=== PATIENT | female | born 2000 | race Caucasian/White ===

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

== ENCOUNTER → 2022-03-20 | Outpatient (CLI) | payer MEDICAID, SELFPAY ==
[2022-03-22 20:09] LABS: QNTFERON TB Mitogen Value > 10.00 IU/mL (.); QNTFERON TB Nil Value 0.01 IU/mL (.); QNTFERON TB1+ Ag Value 0.02 IU/mL (.); QNTFERON TB2+ Ag Value 0.03 IU/mL (.)
[2022-03-23 15:47] LABS: Hepatitis B Core Ab Total Negative (Negative); QNTIFERON TB Positive Criteria Negative (Negative)
== END | disposition home or self-care (01) ==
PROVIDERS: PCP Nurse Practitioner Family; Referring Provider Physician Assistant Medical; Visit Provider Physician Assistant Medical
DX: L40.4 Guttate psoriasis (principal); Z79.899 Other long term (current) drug therapy
CPT/HCPCS: 36415; 86480; 86704

== ENCOUNTER 2022-09-19 11:43 | Emergency (ER) | payer MEDICAID, SELFPAY ==
[2022-09-19 11:44] VITALS: BP 137/103; PULSE 89; RESP 16; TEMP 36.7; O2SAT 99; BMI 24.6
--- NOTE | 2022-09-19 12:05 | ED.RN ---
PT REPORTS THAT SHE DOES NOT WANT TO FILE [employer].
[2022-09-19 12:55] VITALS: BP 130/86; PULSE 89; RESP 16; O2SAT 97
--- NOTE | 2022-09-19 14:48 | EX.ED.DYSGE1 ---
HPI History of Present Illness Chief Complaint: Wound Check Informant: patient Narrative Narrative: 22-year-old female presenting to the emergency room out of concern for infection of right index finger. She states that she had the skin partially torn off of the finger yesterday. She has had a antibiotic ointment and a dressing on it. She notes the skin is white and she is worried that she may have an infection. [facility] Medical History Abscess of nipple Endometriosis Hypokalemia Home Medications duloxetine 20 mg capsule,delayed release 20 mg PO DAILY 10/19/21 [History Last Taken Unknown] cephalexin 500 mg capsule 500 mg PO Q6 5 days #20 CAPSULES 09/19/22 [Rx Last Taken Unknown] Allergy/AdvReac Type Severity Reaction Status Date / Time No Known Allergies Allergy Verified 09/19/22 11:43 Surgical History S/P endometrial ablation Social History household members: significant other Smoking Status: Former smoker alcohol intake: current alcohol intake frequency: a few times a month substance use type: does not use ROS ROS ED Constitutional Constitutional ED: Denies chills, fever(s) or weight loss Eyes Eyes: Denies change in vision or diplopia ENT ENT ED: Denies ear pain, rhinorrhea or sore throat Cardiovascular Cardiovascular: Denies chest pain, orthopnea, palpitations or racing heartbeat Respiratory/Chest Respiratory/Chest: Denies cough, dyspnea or orthopnea Gastrointestinal Gastrointestinal: Denies abdominal pain, diarrhea, nausea or vomiting Genitourinary Genitourinary ED: Denies dysuria, hematuria or urinary frequency Musculoskeletal Musculoskeletal: Denies arthralgias or myalgias Integumentary Reports other Details: See history of present illness ; Denies abscess or rash Neurologic Neurologic: Denies headache(s) or weakness Psychiatric Psychiatric: Denies anxiety, depression, suicidal ideation or suicidal thoughts Endocrine Endocrinology: Denies polydipsia, polyphagia or polyuria Allergic/Immunologic Allergic/Immunologic ED: Denies mouth swelling, tongue swelling or urticaria EXAM Physical Exam Const Vital Signs: 09/19/22 11:44 09/19/22 12:55 Temperature 98.0 F Temperature Source Temporal Pulse Rate 89 89 Respiratory Rate 16 16 Blood Pressure 137/103 H 130/86 H Blood Pressure Mean 114 Pulse Ox 99 97 Oxygen Delivery Method Room Air Positive well nourished and well developed General Appearance ED: well developed HEENT Reports normocephalic, head/scalp atraumatic and moist mucous membranes Eyes PERRL and EOMs intact bilaterally Neck no lymphadenopathy, supple and no JVD Resp normal respiratory effort and clear to auscultation bilaterally Cardio regular rate, regular rhythm and no murmurs GI normal to inspection, nondistended, normoactive bowel sounds and non-tender Palpation: soft Back/Spine no CVA tenderness and normal ROM Extremity normal to inspection General Extremety ED: Negative for edema General Extremity: Negative for edema Neuro oriented x3 and CN's II-XII intact bilaterally Sensorium / Orientation: alert Motor Exam: strength 5/5 throughout Psych mental status grossly normal Mood & Affect: Negative for depressed or tearful Skin no rashes or lesions noted Skin Narrative: Volar surface right index finger demonstrates partial skin avulsion. Some of the tissue is white. There is no active bleeding. I do not see any evidence of secondary infection MDM MDM MDM Narrative Medical decision making narrative: I do not think that there is anything to suture here. We talked about local wound care and I will write for some Keflex. Follow-up as needed Discharge Plan Triage Chief Complaint: Wound Check ED Provider: Patrick Putnam Dx/Rx/DC Orders Clinical Impression: Avulsion of skin of finger Instructions: ED Skin Avulsion Prescriptions: New cephalexin 500 mg capsule 500 mg PO Q6 5 Days Qty: 20 0RF No Action duloxetine 20 mg capsule,delayed release(DR/EC) 20 mg PO DAILY Primary Care Provider: Mary Hernandez NP Referrals: Mary Hernandez [employer], [employer] [Primary Care Provider] - As Needed Disposition Disposition: Home, Self Care Discharge Date/Time: 09/19/22 12:56
== END 2022-09-19 12:56 | disposition home or self-care (01) ==
PROVIDERS: Emergency Provider Emergency Medicine; PCP Nurse Practitioner Family; Visit Provider Emergency Medicine
DX: S61.200A Unspecified open wound of right index finger without damage to nail, initial encounter (principal); Z87.891 Personal history of nicotine dependence; X58.XXXA Exposure to other specified factors, initial encounter
CPT/HCPCS: 99282

== ENCOUNTER → 2023-06-22 | Outpatient (CLI) | payer MEDICAID, SELFPAY ==
[2023-06-27 12:08] LABS: QNTFERON TB Mitogen Value > 10.00 IU/mL (.); QNTFERON TB Nil Value 0.06 IU/mL (.); QNTFERON TB1+ Ag Value 0.56 IU/mL (.); QNTFERON TB2+ Ag Value 0.57 IU/mL (.); QNTIFERON TB Positive Criteria Positive (Negative)
== END | disposition home or self-care (01) ==
LOC: MTLAB 13:13
PROVIDERS: PCP Nurse Practitioner Family; Referring Provider Physician Assistant Surgical; Visit Provider Physician Assistant Surgical
DX: Z02.1 Encounter for pre-employment examination (principal)
CPT/HCPCS: 36415; 86480